=== PATIENT | female | born 1990 | race Hispanic/Latino ===

== ENCOUNTER 2024-07-04 14:45 | Emergency (ER) | payer SELFPAY ==
[~2024-07-04] VITALS: Ht 152.4 cm; Wt 83.9 kg
[2024-07-04 15:41] VITALS: PULSE 104; RESP 16; TEMP 100.5; O2SAT 98
[2024-07-04 16:32] LABS: STREPTOCOCCUS GRP A ANTIGEN NEGATIVE (NEGATIVE)
[2024-07-04 16:34] LABS: CORONAVIRUS COVID-19 AG NEGATIVE (NEGATIVE); INFLUENZA A AG POSITIVE (NEGATIVE); INFLUENZA B AG NEGATIVE (NEGATIVE)
== END 2024-07-04 17:14 | disposition home or self-care (01) ==
LOC: ER 15:42
DX: R50.9 Fever, unspecified (principal); J10.1 Influenza due to other identified influenza virus with other respiratory manifestations; R05.9 Cough, unspecified; R53.81 Other malaise; Z11.52 Encounter for screening for COVID-19
CPT/HCPCS: 71045; 83518; 87070; 99282